=== PATIENT | male | born 1980 | race Caucasian/White ===

== ENCOUNTER 2019-07-09 09:48 | Emergency (ER) | payer MEDICAID ==
[~2019-07-09] VITALS: Ht 172.7 cm; Wt 77.4 kg
[~2019-07-09 09:48] MED LIST: CEPH-443 PO; DOXY-214 PO; NAPR-985 PO; SULF1TAB31 PO
[2019-07-09 09:54] VITALS: BP 135/85; PULSE 88; RESP 18; Ht 172.7 cm; Wt 77.4 kg
[2019-07-09] MEDS ORDERED: LIDOCAINE 1% (MPF) 5 ML VIAL INJ ONE (11:00)
[2019-07-09] MEDS ORDERED: DIPHTH/TET/ACEL PERTUSS (ADULT) 0.5 ML VIAL IM* ONE (12:00)
== END 2019-07-09 12:31 | disposition home or self-care (01) ==
LOC: FTE 09:48
DX: L02.416 Cutaneous abscess of left lower limb (principal); Z23 Encounter for immunization
CPT/HCPCS: 10060; 90471; Z7502; Z7610